=== PATIENT | female | born 1995 | race Caucasian/White ===

== ENCOUNTER 2021-06-22 05:35 | Emergency (ER) | payer MEDICAID ==
[~2021-06-22] VITALS: Ht 157.5 cm; Wt 66.7 kg
[2021-06-22] MEDS ORDERED: IV NORMAL SALINE 1000 ML BAG IV ONE ×2 (05:45→09:15)
[2021-06-22] MEDS ORDERED: HYDROMORPHONE 1 MG/1 ML DISP.SYRIN IV ONE (05:45)
[2021-06-22] MEDS ORDERED: ONDANSETRON 4 MG/2 ML VIAL IV ONE ×2 (05:45→07:45)
[2021-06-22 05:58] LABS: HEMATOCRIT 37.1 % (31.2-41.9); MEAN CORPUSCULAR HEMOGLOBIN 26.7 uug (24.7-32.8); MEAN CORPUSCULAR VOLUME 79.8 fL (75.5-95.3); PLATELET COUNT (AUTO) 270 K/uL (179-408)
[2021-06-22 06:02] LABS: *BILIRUBIN,URIN 1+ (NEGATIVE); *CLARITY,URINE CLEAR (CLEAR); *COLOR,URINE YELLOW (YELLOW); *KETONES,URINE 1+ (NEGATIVE); LEUKOCYTE ESTERASE ,URINE NEGATIVE (NEGATIVE); NITRITE, URINE NEGATIVE (NEGATIVE); UGLUCOSE NEGATIVE (NEGATIVE)
[2021-06-22] MEDS ORDERED: HYDROMORPHONE 1 MG/1 ML DISP.SYRIN ONE (06:06)
[2021-06-22] MEDS ORDERED: ONDANSETRON 4 MG/2 ML VIAL ONE ×2 (06:06→07:44)
[2021-06-22 06:13] LABS: *BLOOD, URINE TRACE (NEGATIVE); *URINE HCG, QUAL NEG (NEGATIVE); BILIRUBIN,DIRECT 0.1 mg/dL (0.0-0.2); BILIRUBIN,TOTAL 0.3 mg/dL (0.2-1.0); CREATININE 0.6 mg/dL (0.6-1.3); POTASSIUM 3.4 mmol/L (3.5-5.1); TOTAL PROTEIN, SERUM 7.8 g/dL (6.4-8.2)
[2021-06-22] MEDS ORDERED: DIATR MEGLU/DIATRIZOATE SODIUM 120 ML BOTTLE PO ONE (06:30)
[2021-06-22] MEDS ORDERED: IV NORMAL SALINE 250 ML IV ONE (06:39)
[2021-06-22] MEDS ORDERED: IOHEXOL 300MG/ML 100 ML INFUS..BTL ONE (06:39)
[2021-06-22] MEDS ORDERED: SWABABLE VALVE TRANSFER SET EA MC ONE (06:39)
[2021-06-22] MEDS ORDERED: DIATRIZOATE MEGLUMINE 300 ML INFUS..BTL ONE (06:39)
--- NOTE | 2021-06-22 06:40 | NUR ---
Ultrasound at bedside
[2021-06-22] MEDS ORDERED: DIATR MEGLU/DIATRIZOATE SODIUM 30 ML BOTTLE ONE ×2 (06:42→07:24)
--- NOTE | 2021-06-22 07:44 | NUR ---
PT IS IN BED #1B. ULTRASOUND EXAM WAS DONE, CONTINUE TO MONITOR THE PT.
[2021-06-22 09:33] LABS: BACTERIA,URINE FEW /HPF (NONE SEEN); RBC,URINE 0-3 /HPF (0-3); WBC,URINE 0-3 /HPF (0-3)
[2021-06-22 09:34] LABS: SQUAMOUS EPITHELIAL CELL,UR MODERATE /HPF (NONE SEEN)
[2021-06-22] MEDS ORDERED: METOCLOPRAMIDE HCL 10 MG/2 ML VIAL IV ONE (10:15)
[2021-06-22] MEDS ORDERED: METOCLOPRAMIDE HCL 10 MG/2 ML VIAL ONE (10:30)
[2021-06-22] MEDS ORDERED: MAGNESIUM SULFATE/D5W 100 ML ONE (11:01)
[2021-06-22] MEDS ORDERED: METO-295 PO (11:39)
[2021-06-22] MEDS ORDERED: FAMO40TA71 PO (11:39)
[2021-06-22] MEDS ORDERED: OMEP40CA21 PO (11:39)
--- NOTE | 2021-06-22 11:51 | NUR ---
PT WAS D/C'd TO HOME. D/C INSTRUCTIONS GIVEN TO THE PT BY DR NEAL.
[2021-06-22 12:03] VITALS: BP 131/69
== END 2021-06-22 12:04 | disposition home or self-care (01) ==
LOC: ER 05:35
DX: R10.13 Epigastric pain (principal); Z97.5 Presence of (intrauterine) contraceptive device; Z98.84 Bariatric surgery status; Z20.822 Contact with and (suspected) exposure to COVID-19
CPT/HCPCS: 36415; 74177; 76705; 76856; 80048; 80076; 81001; 83690; 84703; 85025; 85730; 87426; 96361; 96374; 96375; 96376; 99285; J1170; J2405 ×2; J2765; Q9967; A4663; J3475; J7030; J7050; Q9958; Q9963